=== PATIENT | female | born 1990 | race Caucasian/White ===

== ENCOUNTER 2021-03-27 16:19 | Observation (INO) | payer BC, OTHER ==
[~2021-03-27] VITALS: Ht 160 cm; Wt 93.4 kg
[2021-03-27] MEDS ORDERED: MAG SULF 20 GM/H2O PREMIX DRIP 500 ML IV SCH (17:25)
[2021-03-27] MEDS ORDERED: LACTATED RINGERS 1,000 ML IV SCH (17:25)
[2021-03-27] MEDS ORDERED: PNV91TAB8 PO (17:40)
[2021-03-27] MEDS ORDERED: TRA200 PO (17:40)
[2021-03-27 18:02] LABS: BASOPHILS % (AUTO) 0.2 % (0.0-2.0); EOSINOPHILS # (AUTO) 0.1 K/uL (0-0.4); EOSINOPHILS % (AUTO) 0.7 % (0.0-4.0); HEMATOCRIT 33.9 % (36-48); HEMOGLOBIN 11.4 g/dL (12.0-16.0); LYMPHOCYTES # (AUTO) 2.3 K/uL (2.5-16.5); LYMPHOCYTES % (AUTO) 20.5 % (20.5-51.1); MEAN CORPUSCULAR HEMOGLOBIN 30 pg (27-31); MEAN CORPUSCULAR HGB CONC 34 g/dL (33-37); MEAN CORPUSCULAR VOLUME 89.4 fL (80-94); MONOCYTES # (AUTO) 0.9 K/uL (0.8-1.0); MONOCYTES % (AUTO) 7.8 % (1.7-9.3); NEUTROPHILS # (AUTO) 7.9 K/uL (1.8-7.7); NEUTROPHILS % (AUTO) 70.8 % (42.2-75.2); PLATELET COUNT (AUTO) 257 K/uL (140-450); WHITE BLOOD COUNT (AUTO) 11.2 K/uL (4.8-10.8)
[2021-03-27] MEDS ORDERED: LABETALOL 100 MG/20 ML VIAL IV SCH (18:20)
[2021-03-27 18:22] LABS: ALBUMIN 2.8 g/dL (3.4-5.0); ANION GAP 14.1 (8-16); CARBON DIOXIDE 22.6 mmol/L (21-32); CREATININE 0.5 mg/dL (0.6-1.3); POTASSIUM 3.7 mmol/L (3.5-5.1); TOTAL BILIRUBIN 0.2 mg/dL (0.0-1.0)
[2021-03-27] MEDS: LABETALOL 100 MG/20 ML VIAL IV PRN ×2 (18:23→18:31)
[2021-03-27 18:26] LABS: URINE TOTAL PROTEIN 77.5 mg/dL (0-12)
[2021-03-27 18:46] LABS: APPEARANCE,URINE CLEAR (CLEAR); BILIRUBIN,URINE NEGATIVE (NEGATIVE); BLOOD, URINE NEGATIVE (NEGATIVE); COLOR,URINE YELLOW (YELLOW); LEUKOCYTE ESTERASE ,URINE NEGATIVE (NEGATIVE); NITRITE, URINE NEGATIVE (NEGATIVE); PH,URINE 7.5 (5.0-9.0); UGLUCOSE NEGATIVE (NEGATIVE)
[2021-03-27] MEDS ORDERED: BETAMETH ACET/BETAMETH NA PH 30 MG/5 ML VIAL IM SCH (19:00)
[2021-03-28 00:20] LABS: URIC ACID 3.9 mg/dL (2.6-7.2)
[2021-03-29 09:06] LABS: LACTATE DEHYDROGENASE 180 IU/L (119-226)
[2021-04-02 06:07] LABS: LD1 FRACTION 31 % (17-32); LD2 FRACTION 35 % (25-40); LD3 FRACTION 18 % (17-27); LD4 FRACTION 9 % (5-13); LD5 FRACTION 7 % (4-20)
== END 2021-03-27 20:32 | disposition critical access hospital (66) ==
LOC: MLD 16:19
PROVIDERS: ADMIT Obstetrics & Gynecology; ATTEND Obstetrics & Gynecology
DX: O16.3 Unspecified maternal hypertension, third trimester (principal); Z20.822 Contact with and (suspected) exposure to COVID-19; Z3A.28 28 weeks gestation of pregnancy; Z79.899 Other long term (current) drug therapy
CPT/HCPCS: 36415; 80053; 81003; 82570; 83625; 84550; 85025; 86886; 86900; 86901; 87426; 96365; 96366; 96372; 96375; G0378; J0702; J3475; J3490